=== PATIENT | male | born 1985 | race African-American/Black ===

== ENCOUNTER 2017-06-15 08:05 | Emergency (ER) | payer BC, MEDICAID ==
[~2017-06-15] VITALS: Ht 195.6 cm; Wt 129.0 kg
[2017-06-15 10:40] VITALS: BP 150/95
== END 2017-06-15 10:42 | disposition home or self-care (01) ==
LOC: ER 08:19
DX: B34.9 Viral infection, unspecified (principal); F17.210 Nicotine dependence, cigarettes, uncomplicated
CPT/HCPCS: 93005; 99283; 99406; J7030

== ENCOUNTER 2017-06-16 18:39 | Emergency (ER) | payer BC, MEDICAID | END 2017-06-16 22:43 | disposition left against medical advice (07) | LOC: ER 18:39 | DX: R11.2 Nausea with vomiting, unspecified (principal); Z53.21 Procedure and treatment not carried out due to patient leaving prior to being seen by health care provider ==

== ENCOUNTER 2017-10-04 10:38 | Emergency (ER) | payer BC, MEDICAID ==
[~2017-10-04] VITALS: Ht 203.2 cm; Wt 114.0 kg
[2017-10-04] MEDS ORDERED: ONDANSETRON HCL 4MG/2ML VIAL IV STA (11:10)
[2017-10-04] MEDS ORDERED: KETOROLAC 30MG/ML VIAL IV STA (11:10)
[2017-10-04] MEDS ORDERED: SODIUM CHLORIDE 0.9% 1,000 ML IV ONE (11:10)
[2017-10-04 11:28] LABS: BASOPHILS % 1.1 % (0.0-2.0); EOSINOPHILS % 1.6 % (0.0-5.0); HEMATOCRIT. 42.2 % (42.0-52.0); HEMOGLOBIN. 14.8 g/dL (14.0-18.0); LYMPHOCYTES % 34.2 % (20.0-50.0); MEAN CORPUSCULAR HEMOGLOBIN 32.6 pg (28.0-32.0); MEAN CORPUSCULAR VOLUME 92.9 fL (80.0-94.0); MEAN PLATELET VOLUME 8.3 fl (7.4-10.4); MONOCYTES % 10.7 % (2.0-8.0); NEUTROPHILS % 52.4 % (40.0-76.0); PLATELET 245 x1000/uL (130-400); RED BLOOD CELL COUNT 4.55 mill/uL (4.7-6.1); RED CELL DISTRIBUTION WIDTH 12.4 % (11.6-14.6)
[2017-10-04 11:32] LABS: CHLORIDE 105 mEq/L (98-107)
[2017-10-04 11:34] LABS: INR 1.1; PROTHROMBIN TIME 11.8 sec (9.4-11.6)
[2017-10-04 12:23] LABS: CLARITY URINE CLEAR (CLEAR); COLOR URINE YELLOW (YELLOW); KETONES URINE TRACE (NEGATIVE); LEUKOCYTE ESTERASE URINE NEGATIVE (NEGATIVE); NITRITE URINE NEGATIVE (NEGATIVE); OCCULT BLOOD URINE NEGATIVE (NEGATIVE); PH URINE 6.5 (4.5-8.0); PROTEIN URINE NEGATIVE (NEGATIVE); SPECIFIC GRAVITY URINE 1.021 (1.005-1.030)
[2017-10-04 14:32] VITALS: BP 135/69
== END 2017-10-04 14:48 | disposition home or self-care (01) ==
LOC: ER 10:57
DX: R10.84 Generalized abdominal pain (principal); F12.10 Cannabis abuse, uncomplicated; R19.7 Diarrhea, unspecified
CPT/HCPCS: 36415; 80053; 81003; 83690; 85025; 85610; 96361; 96374; 96375; 99284; J1885; J2405; J7030; Z7610

== ENCOUNTER 2017-10-05 15:11 | Emergency (ER) | payer BC, MEDICAID ==
[~2017-10-05] VITALS: Ht 203.2 cm; Wt 116.0 kg
[2017-10-05 15:33] VITALS: BP 145/96
== END 2017-10-05 20:30 | disposition left against medical advice (07) ==
LOC: ER 15:11
DX: R42 Dizziness and giddiness (principal); Z53.21 Procedure and treatment not carried out due to patient leaving prior to being seen by health care provider